=== PATIENT | female | born 1950 | race Caucasian/White ===

== ENCOUNTER → 2018-03-26 09:11 | Outpatient (REF) | payer MEDICARE, OTHER, SELFPAY ==
[2018-03-26 10:24] LABS: Add Manual Diff / Slide Review NO; Basophils Percent Auto 0.6 % (0-2); Eosinophils Percent Auto 5.3 % (2-4); Hematocrit 30.5 % (36-46); Hemoglobin 10.2 g/dL (12.0-16.0); Lymphocytes Percent Auto 29.7 % (25-40); Mean Corpuscular HGB Conc 33.5 % (30-36); Mean Corpuscular Hemoglobin 32.2 PG (26-34); Monocytes Percent Auto 12.4 % (3-14); Neutrophils Absolute Auto 2700 /uL (3000-5900); Platelet Count 191 X10^3/uL (150-400); Red Blood Cell Count 3.18 X10^6/uL (4.0-5.2); Red Cell Distribution Width 14.4 % (11.6-14.8); White Blood Cell Count 5.2 X10^3/uL (4.5-11.0)
[2018-03-26 10:38] LABS: BUN Creatinine Ratio 23.8 (6-22); Blood Urea Nitrogen 19 mg/dL (7-17); Calcium 8.3 mg/dL (8.4-10.2); Carbon Dioxide 27 mmol/L (22-32); Chloride 105 mmol/L (98-107); Estimated Glomerular Filt Rate > 60.0 mL/min (>60); Glucose 74 mg/dL (80-110); HEMOLYSIS < 15 (0-50); Potassium 4.2 mmol/L (3.4-5.1); Sodium 143 mmol/L (137-145)
== END ==
LOC: LAB 09:11
PROVIDERS: Family Provider Family Medicine; PCP Family Medicine; Visit Provider Nurse Practitioner Family
DX: S82.009A Unspecified fracture of unspecified patella, initial encounter for closed fracture (principal)
CPT/HCPCS: 36415; 80048; 85025

== ENCOUNTER → 2018-04-21 07:21 | Outpatient (REF) | payer SELFPAY ==
[2018-04-21 09:30] LABS: Thyroid Stimulating Hormone 0.54 uIU/mL (0.47-4.68)
== END ==
LOC: LAB 07:21
PROVIDERS: Family Provider Family Medicine; PCP Family Medicine; Visit Provider Nurse Practitioner Family
DX: E03.9 Hypothyroidism, unspecified (principal)
CPT/HCPCS: 36415; 84443

== ENCOUNTER → 2018-12-24 12:27 | Outpatient (CLI) | payer MEDICARE, OTHER, SELFPAY ==
--- NOTE | 2018-12-24 12:37 | DI.RAD.S_ITS ---
PROCEDURE: XR HAND RT MIN 3V INDICATIONS: fell on right hand/fifth metatarsal swelling/pain TECHNIQUE: 3 views of the hand(s) acquired. COMPARISON: None. FINDINGS: Bones: There is a minimally displaced fracture of the distal fifth metacarpal. Bones are osteopenic. There is a chronic appearing non-unified ulnar styloid fracture and prior ORIF of the distal radius. Soft tissues: No suspicious soft tissue calcifications. There is soft tissue swelling overlying the fifth metacarpal fracture. IMPRESSION: Minimally displaced acute fifth metacarpal fracture with overlying soft tissue swelling. Dictated by: Maria Isabel Angel M.D. on 12/24/2018 at 13:00 Approved by: Maria Isabel Angel M.D. on 12/24/2018 at 13:01
== END ==
PROVIDERS: Family Provider Family Medicine; PCP Family Medicine; Visit Provider Physician Assistant
DX: S62.326A Displaced fracture of shaft of fifth metacarpal bone, right hand, initial encounter for closed fracture (principal)
CPT/HCPCS: 73130

== ENCOUNTER → 2021-01-24 16:41 | Outpatient (CLI) | payer MEDICARE, OTHER, SELFPAY ==
[2021-01-24 18:06] LABS: Lithium 0.5 mmol/L (0.6-1.2)
[2021-01-24 18:09] LABS: Alanine Aminotransferase 53 IU/L (<35); Albumin 4.5 g/dL (3.5-5.0); Albumin Globulin Ratio 1.7 (1.0-2.8); Alkaline Phosphatase 83 U/L (38-126); Aspartate Aminotransferase 39 IU/L (14-36); BUN Creatinine Ratio 18.3 (6-22); Bilirubin Total 0.5 mg/dL (0.2-1.3); Blood Urea Nitrogen 17 mg/dL (7-17); Calcium 10.5 mg/dL (8.4-10.2); Carbon Dioxide 30 mmol/L (22-32); Chloride 103 mmol/L (98-107); Estimated Glomerular Filt Rate 59.8 mL/min (>60); Globulin 2.6 g/dL (1.7-4.1); Glucose 74 mg/dL (80-110); HEMOLYSIS < 15 (0-50); Potassium 3.7 mmol/L (3.4-5.1); Sodium 140 mmol/L (137-145); Total Protein 7.1 g/dL (6.3-8.2)
[2021-01-24 18:26] LABS: Free T4, Direct Thyroxine 1.85 ng/dL (0.78-2.19)
[2021-01-24 18:40] LABS: Thyroid Stimulating Hormone 1.42 uIU/mL (0.47-4.68)
== END ==
PROVIDERS: Family Provider Family Medicine; PCP Family Medicine; Referring Provider Nurse Practitioner Psychiatric/Mental Health; Visit Provider Nurse Practitioner Psychiatric/Mental Health
DX: Z51.81 Encounter for therapeutic drug level monitoring (principal); E00.0 Congenital iodine-deficiency syndrome, neurological type
CPT/HCPCS: 36415; 80053; 80178; 84439; 84443

== ENCOUNTER → 2021-04-26 11:02 | Outpatient (CLI) | payer MEDICARE, OTHER, SELFPAY ==
[2021-04-26 12:17] LABS: BUN Creatinine Ratio 46.2 (6-22); Blood Urea Nitrogen 43 mg/dL (7-17); Calcium 10.8 mg/dL (8.4-10.2); Chloride 93 mmol/L (98-107); Estimated Glomerular Filt Rate 59.6 mL/min (>60); Glucose 92 mg/dL (80-110); HEMOLYSIS < 15 (0-50); Potassium 2.9 mmol/L (3.4-5.1); Sodium 137 mmol/L (137-145)
[2021-04-26 12:40] LABS: Carbon Dioxide 39 mmol/L (22-32)
[2021-04-26 12:41] LABS: Lithium 0.6 mmol/L (0.6-1.2)
[2021-04-26 12:58] LABS: Free T4, Direct Thyroxine 1.23 ng/dL (0.78-2.19)
[2021-04-26 13:12] LABS: Thyroid Stimulating Hormone 4.15 uIU/mL (0.47-4.68)
== END ==
PROVIDERS: Family Provider Family Medicine; PCP Family Medicine; Referring Provider Nurse Practitioner Psychiatric/Mental Health; Visit Provider Nurse Practitioner Psychiatric/Mental Health
DX: Z79.899 Other long term (current) drug therapy (principal); Z51.81 Encounter for therapeutic drug level monitoring
CPT/HCPCS: 36415; 80048; 80178; 84439; 84443

== ENCOUNTER → 2022-01-03 08:42 | Outpatient (CLI) | payer MEDICARE, OTHER, SELFPAY ==
[2022-01-03 11:42] LABS: Collection Time Urine 24 Hours; Creatinine 24 Hour Urine 547 mg/day (800-1800); Creatinine Urine Random 22.8 mg/dL; Total Volume Urine 2400 mL
[2022-01-03 15:28] LABS: Calcium 24 Hour Urine 98 mg/day (100-300); Calcium Urine Random 4.1 mg/dL; Collection Time Urine 24 Hours; Total Volume Urine 2400 mL
== END ==
PROVIDERS: Family Provider Family Medicine; PCP Family Medicine; Referring Provider Internal Medicine; Visit Provider Internal Medicine
DX: M81.0 Age-related osteoporosis without current pathological fracture (principal)
CPT/HCPCS: 82340; 82570